=== PATIENT | female | born 1955 | race Caucasian/White ===

== ENCOUNTER → 2021-05-15 | Outpatient (CLI) | payer BC ==
--- NOTE | 2021-05-15 15:47 | RAD ---
INDICATION: Screening for osteopenia/osteoporosis. Postmenopausal evaluation. COMPARISON: None. TECHNIQUE: Bone densitometry was performed through the forearm and proximal femur. IMPRESSION: Forearm: BMD: 0.4 T-Score: 1.2 Range: Normal Proximal Femur: BMD: 0.9 T-Score: -0.3 Range: Normal World Health Organization Criteria for Bone Density: T-Score: > -1.0: Normal Range < -1.0 to -2.5: Osteopenic Range < -2.5: Osteoporotic Range Electronically signed by: Joo Russell MD (05/15/2021 3:45 PM) [id number]
== END ==
LOC: MAMMO 14:20
PROVIDERS: ATTEND Physician Assistant Medical
DX: Z78.0 Asymptomatic menopausal state (principal)
CPT/HCPCS: 77081

== ENCOUNTER 2022-01-02 12:29 | Emergency (ER) | payer BC, OTHER ==
[~2022-01-02] VITALS: Ht 170.2 cm; Wt 88.6 kg
[2022-01-02 12:40] VITALS: BP 118/73
--- NOTE | 2022-01-02 13:22 | RAD ---
XR KNEE 4 VIEWS WITH PATELLA_RT Clinical Indication: Reason: PAIN, GAVE OUT GOING UP STAIRS TODAY / Spl. Instructions: / History: Comparison: None. Findings: The mineralization is normal. There is no acute fracture. Tricompartmental joint spaces are maintaine d. There is a small joint effusion. The patella is in anatomic position. There is no soft tissue swel ling. There is negligible patellar subluxation on the sunrise view. IMPRESSION: 1. No acute fracture. 2. Small joint effusion. Electronically signed by: Toño Smith MD (01/02/2022 1:19 PM) [id number]
--- NOTE | 2022-01-02 13:25 | PHYS DOC ---
Past History Past Surgical History: Cholecystectomy, Knee Replacement Alcohol Use: Occasionally General Adult EDM: Chief Complaint: MECHANICAL FALL HPI: HPI: 66-year-old female presents with right knee pain. The patient was going up some stairs when her right knee just felt very weak and gave out. She went down onto the stairs. Since that time, she cannot take a step forward with her right leg because it feels like it is getting get weak and give out. If she stands still with weight on the right leg she has mild posterior discomfort. Most of her pain is in the posterior aspect of the knee. Patient denies any recent trauma or other falls. No long travel times in a plane or car. She denies chest pain, shortness of breath. She has no other specific symptoms. She has had a left knee replacement and knows she has arthritis in the right knee. Review of Systems: Review of Systems: Constitutional: Denies fever or chills Eyes: Denies change in visual acuity HENT: Denies nasal congestion or sore throat Respiratory: Denies cough or shortness of breath Cardiovascular: Denies chest pain or edema GI: Denies abdominal pain, nausea, vomiting, bloody stools or diarrhea : Denies dysuria Musculoskeletal: Right knee pain Integument: Denies rash Neurologic: Denies headache, focal weakness or sensory changes Endocrine: Denies polyuria or polydipsia Lymphatic: Denies swollen glands Psychiatric: Denies depression or anxiety Allergies: Allergies: Allergies Coded Allergies Type Severity Reaction Last Updated Verified lisinopril Allergy Unknown 01/02/22 Yes Physical Exam: PE: Constitutional: Well developed, well nourished, no acute distress, non-toxic appearance. [] HENT: Normocephalic, atraumatic, bilateral external ears normal, oropharynx moist, no oral exudates, nose normal. [] Eyes: PERRLA, EOMI, conjunctiva normal, no discharge. [] Neck: Normal range of motion, no tenderness, supple, no stridor. [] Cardiovascular: Heart rate regular rhythm, no murmur [] Lungs & Thorax: Bilateral breath sounds clear to auscultation [] Abdomen: Bowel sounds normal, soft, no tenderness, no masses, no pulsatile masses. [] Skin: Warm, dry, no erythema, no rash. [] Back: No tenderness, no CVA tenderness. [] Extremities: Right knee with posterior lateral tenderness, no obvious deformity or ecchymosis. Ligaments with solid end feel. [] Neurologic: Alert and oriented X 3, normal motor function, normal sensory function, no focal deficits noted. [] Psychologic: Affect normal, judgement normal, mood normal. [] Current Patient Data: Vital Signs: Vital Signs Date Time Temp Pulse Resp B/P (MAP) Pulse Ox O2 Delivery O2 Flow Rate FiO2 01/02/22 12:40 98.2 16 118/73 (88) 96 Room Air EKG: EKG: [] Radiology/Procedures: Radiology/Procedures: [] Impressions: XR KNEE 4 VIEWS WITH PATELLA_RT Clinical Indication: Reason: PAIN, GAVE OUT GOING UP STAIRS TODAY / Spl. Instructions: / History: Comparison: None. Findings: The mineralization is normal. There is no acute fracture. Tricompartmental joint spaces are maintained. There is a small joint effusion. The patella is in anatomic position. There is no soft tissue swelling. There is negligible patellar subluxation on the sunrise view. IMPRESSION: 1. No acute fracture. 2. Small joint effusion. Electronically signed by: Toño Felton MD (01/02/2022 1:19 PM) [id number] DICTATED AND SIGNED BY: TOÑO FELTON MD DATE: 01/02/22 1318 CC: MANDY MCHUGH DO; JORJE POE ~MTH0 0 Heart Score: C/O Chest Pain: N/A Risk Factors: Risk Factors: DM, Current or recent (<one month) smoker, HTN, HLP, family history of CAD, obesity. Risk Scores: Score 0 - 3: 2.5% MACE over next 6 weeks - Discharge Home Score 4 - 6: 20.3% MACE over next 6 weeks - Admit for Clinical Observation Score 7 - 10: 72.7% MACE over next 6 weeks - Early Invasive Strategies Course & Med Decision Making: Course & Med Decision Making Pertinent Labs and Imaging studies reviewed. (See chart for details) The patient's x-ray is negative for acute findings. There is a small joint ef fusion. See official read for more details. Based on my exam, this does not appear to be a ligamentous injury. I do wonder about her meniscus. I will place her in a knee immobilizer for stabilization and comfort. She will need to follow-up with her primary care physician and possibly orthopedics if this does not improve in a couple of days. She is stable for discharge at this time. [] Whiton Disclaimer: Andrea Disclaimer: This electronic medical record was generated, in whole or in part, using a voice recognition dictation system. Departure Departure: Impression: Primary Impression: Posterior right knee pain Disposition: HOME / SELF CARE / HOMELESS Condition: STABLE Referrals: JORJE POE (PCP) Patient Instructions: Knee - Cartilage (Meniscus) Injury MANDY MCHUGH DO Jan 02, 2022 13:24
== END 2022-01-02 14:00 | disposition home or self-care (01) ==
LOC: ER 12:29
DX: M25.561 Pain in right knee (principal); Z88.8 Allergy status to other drugs, medicaments and biological substances
CPT/HCPCS: 29505; 73564; 99283